=== PATIENT | female | born 1950 | race Caucasian/White ===

== ENCOUNTER → 2018-12-14 | Outpatient (CLI) | payer OTHER, MEDICARE ==
--- NOTE | 2018-12-15 11:13 | RAD ---
LUMBAR SPINE MIN 4V History: Back pain. Technique: 5 views lumbar spine. Comparison: October 24, 2017 Findings: Mild retrolisthesis L3 on L4, unchanged. Chronic mild L1 superior endplate compression deformity, unchanged. No acute fracture. Moderate multilevel degenerative disc changes most prominent L3-L4 and L5-S1. Multilevel facet arthropathy. Advanced bilateral hip DJD. Impression: 1. Moderate multilevel lumbar spondylosis, unchanged. 2. Advanced bilateral hip DJD partially imaged. Electronically signed by: Zohaib Kirkpatrick DO (12/15/2018 11:10 AM) [facility]
--- NOTE | 2018-12-15 11:14 | RAD ---
CERVICAL SPINE 2-3V History: Back pain Technique: 3 views cervical spine. Comparison: None. Findings: Straightening of the normal cervical lordosis. Otherwise, normal alignment. Multilevel degenerative disc changes most advanced C3-C4 C5-C6 and C6-C7. Multilevel facet arthropathy. Normal vertebral body height. No fracture. Prevertebral soft tissues unremarkable. Normal alignment C1 on C2. C7-T1 articulation not well evaluated on lateral view due to over lapping structures. Impression: 1. Advanced multilevel cervical spondylosis. Electronically signed by: Zohaib Kirkpatrick DO (12/15/2018 11:12 AM) [facility]
== END | disposition home or self-care (01) ==
LOC: DXRAD 14:43
PROVIDERS: ATTEND Physician Assistant Medical
DX: M47.817 Spondylosis without myelopathy or radiculopathy, lumbosacral region (principal); M47.812 Spondylosis without myelopathy or radiculopathy, cervical region; M46.82 Other specified inflammatory spondylopathies, cervical region; M43.8X6 Other specified deforming dorsopathies, lumbar region; M46.86 Other specified inflammatory spondylopathies, lumbar region; M16.0 Bilateral primary osteoarthritis of hip
CPT/HCPCS: 72040; 72110

== ENCOUNTER → 2019-11-05 | Outpatient (CLI) | payer MEDICARE, OTHER ==
--- NOTE | 2019-11-05 16:52 | RAD ---
INDICATION: 68 years of age asymptomatic female patient presents for screening mammography. TECHNIQUE: Full field craniocaudal and mediolateral oblique images of both breasts were obtained using digital technique with tomosynthesis and also analyzed with computer-aided detection software. COMPARISON: None available. BREAST COMPOSITION: Category C: The breast tissue is heterogeneously dense, which could obscure detection of small masses. FINDINGS: Benign calcifications are present. No suspicious masses, microcalcifications or architectural distortion is present to suggest malignancy in either breast. The visualized axillae are unremarkable. IMPRESSION: No mammographic evidence of malignancy. RECOMMENDATION: Annual screening mammography is recommended, unless clinically indicated sooner based on symptoms or change in physical exam. BIRADS 2: BENIGN s Electronically signed by: Louis Hare MD (11/05/2019 4:49 PM) [place] [id number]
== END | disposition home or self-care (01) ==
LOC: MAMMO 09:06
PROVIDERS: ATTEND Physician Assistant Medical
DX: Z12.31 Encounter for screening mammogram for malignant neoplasm of breast (principal)
CPT/HCPCS: 77063; 77067

== ENCOUNTER → 2020-12-24 | Outpatient (CLI) | payer MEDICARE, OTHER ==
--- NOTE | 2020-12-24 11:32 | RAD ---
INDICATION : Routine Screening. COMPARISON: [facility] including July 2017 TECHNIQUE: Standard mammogram screening views of the bilateral breasts were obtained with 3D tomosynt hesis. CAD was utilized. FINDINGS: The breasts are heterogenous density. No definite suspicious mass. There is repeat demonstration of some calcifications within the bilateral breasts. IMPRESSION: BI-RADS Category 2: Benign findings. Recommend repeat screening exam in one year. The patient was placed into the recall system with a suggested recall date for follow up imaging. Mammography is the most sensitive method for finding small breast cancers, but it does not detect the m all and is not a substitute for careful clinical examination. A negative mammogram does not negate a clinically suspicious finding and should not result in delay in biopsying a clinically suspicious abnormality. Electronically signed by: Freddie Estrada MD (12/24/2020 11:29 AM) [id number]
== END ==
LOC: MAMMO 09:18
PROVIDERS: ATTEND Physician Assistant Medical
DX: Z12.31 Encounter for screening mammogram for malignant neoplasm of breast (principal)
CPT/HCPCS: 77063; 77067